=== PATIENT | male | born 1955 | race Caucasian/White ===

== ENCOUNTER 2017-10-15 05:30 | Inpatient (IN) | payer OTHER ==
[~2017-10-15] VITALS: Ht 175.3 cm; Wt 68.0 kg
--- NOTE | ~2017-10-15 | O ---
[facility] [place] [address] OPERATIVE REPORT Name: SHAUN CURRIE Room #: 411-P [facility] IN M.R.#: [id number] Admission: 10/15/17 Attend Phys: Kp Barnhart MD Discharge: Date of : 53 Report #: [id number] THIS REPORT FOR: //name// CC: [facility] physician/PCP Kp Barnhart DATE OF SERVICE: 10/15/2017 PREOPERATIVE DIAGNOSES: 1. Right ankle osteomyelitis. 2. Right ankle retained hardware. POSTOPERATIVE DIAGNOSES: 1. Right ankle osteomyelitis. 2. Right ankle retained hardware. 3. Right subtalar joint septic arthritis. PROCEDURE: Right ankle and subtalar joint irrigation and debridement with hardware removal. SURGEON: Kp Barnhart MD WIRELESS ARCHITECT: TAQUERIA Kelsey ANESTHESIA: General. ESTIMATED BLOOD LOSS: Minimal. DRAINS: None. TOURNIQUET TIME: 45 minutes. DESCRIPTION OF PROCEDURE: The patient brought to the operating room where he was placed under general anesthesia. Once under adequate general anesthesia, his right lower extremity was prepped and draped in the sterile manner. The extremity was elevated and tourniquet placed to 300 mmHg. Utilizing fluoroscopy for guidance, the 2 screw heads for the 7.3 cannulated screws were identified both medially and laterally. These were then subsequently removed through 2 cm incisions both medially and lateral at the distal third of the tibia and fibula. The patient did have a wire remaining which was in the subtalar joint. A 4 cm incision overlying the subtalar joint was then made to dissect down through the soft tissue to the joint itself, which was then opened. There was some purulent fluid identified there which was cultured. Curettes, rongeurs and an osteotome was utilized to localize what appeared to be a 0.062 K-wire, which was then extracted through the subtalar joint. An anteromedial incision was made over the talar neck and head, which was dissected down through the soft tissue to the [address] [address] OPERATIVE REPORT Name: SHAUN CURRIE JR Room #: 411-P [facility] IN ..#: [id number] Admission: 10/15/17 Attend Phys: Kp Barnhart MD Discharge: Date of : 53 Report #: [id number] talar neck and head, which was identified and subsequently any soft bone was then resected. This was sent to pathology as well as cultured. This was an apparent 2 cm in diameter area of the distal navicular. The wounds were then irrigated copiously and closed over a Hemovac drain through the lateral incision. The wounds were irrigated once again copiously and closed with 2-0 Prolene in the subcutaneous tissues and marta were used for the skin. The wounds were dressed with Xeroform, 4 x 4s, and sterile soft compressive dressing was placed. Tourniquet was let down approximately 45 minutes. Toes were pink and warm with good capillary refill. There were no complications from the procedure. The patient tolerated the procedure well and went to the recovery room without incident. <ELECTRONICALLY SIGNED> By: Kp Barnhart MD 10/18/17 [id number] Kp Barnhart MD /nt
--- NOTE | ~2017-10-15 | HC ---
[facility] [place] [address] CONSULTATION Name: ROSEYSHAUN Roshan LARA Room #: 411-P ADM IN M.R.#: [id number] Admission: 10/15/17 Attend Phys: Kp Barnhart MD Discharge: Date of : 53 Report #: [id number] THIS REPORT FOR: //name// CC: [facility] physician/PCP Kp Barnhart TYPE OF REPORT: Infectious disease consultation. REASON FOR CONSULTATION: I was asked to evaluate concerning right subtalar joint septic arthritis and osteomyelitis. HISTORY OF PRESENT ILLNESS: The patient was a 61-year old with a remote history of a right ankle fracture approximately 30 years ago. He underwent ORIF and actually healed well and was doing fine until end of July when he was walking upstairs and he tripped and injured the ankle. He had acute swelling. He had acute pain that did not resolve within 48 hours. He then was seen by his orthopedic surgeon and was put in an immobilizer boot. Still did not improve and was seen by Dr. Barnhart where an MRI scan was performed, showed evidence of osteomyelitis and septic arthritis involving the joint. He goes to surgery today for explantation of the hardware and debridement of the joint and talus. There was evidence of soft bone and purulent material in the joint. Following his fall approximately 1 week later developed colitis and was hospitalized at [facility]. He was unclear as to the etiology of this colitis. He was treated with 1 week course of antibiotic therapy. He has been off antibiotics for over one month. He has had no further GI symptoms since that hospital stay. He denies any other injuries. He has had no skin or soft tissue infections identified. When he fell, he did not break the skin to the ankle. ALLERGIES: Intolerance to CODEINE. MEDICATIONS: Amlodipine. He was given cefazolin today postop. PAST MEDICAL HISTORY: Ankle fracture and hypertension. FAMILY HISTORY: Noncontributory. SOCIAL HISTORY: Smokes marijuana. No significant alcohol intake. No HIV risk factors. 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 REVIEW OF SYSTEMS: Denies any cardiopulmonary, GI or complaints. No other skin or joint issues noted. PHYSICAL EXAMINATION: VITAL SIGNS: Afebrile and hemodynamically stable. GENERAL: He was alert and cooperative, in no acute distress. [address] [address] CONSULTATION Name: CURRIESHAUN L Room #: 411-[facility] IN [facility].#: [id number] Admission: 10/15/17 Attend Phys: Kp Barnhart MD Discharge: Date of : 53 Report #: [id number] EXTREMITIES: His right ankle was in surgical wrap. There was a drain in place. Toes were warm. Sensation intact. Good capillary refill. HEENT: Upper teeth are edentulous. Several lower anterior teeth present. NECK: Supple. No adenopathy. LUNGS: Clear. HEART: Regular, without murmur. ABDOMEN: Soft and nontender. NEUROLOGICAL: Nonfocal. LABORATORY STUDIES: Cultures are pending from the ankle. IMPRESSION AND RECOMMENDATIONS: A 61-year old with septic right ankle with underlying osteomyelitis and hardware infection. I am suspecting that the fall triggered this infection. Whether his colitis has some bearing this, has not yet clear. We would recommend obtaining CBC, chemistry, sedimentation rate. We will get a peripherally inserted central catheter line placed. Keep him on cefazolin for now until further cultures are back. Obtain microbiology reports and lab reports from [facility]. He will require outpatient antibiotic therapy. We will begin arrangements. <ELECTRONICALLY SIGNED> By: Bhupinder Wolff MD 10/18/17 1059 1959 [id number] Bhupinder Wolff MD /nt
[~2017-10-15 05:30] MED LIST: HYDROCODON-ACE1 EA10 PO; IBUPROFEN 200200 M1 PO; NORVASC10 MG PO
[2017-10-15 12:16] VITALS: BP 142/92
[2017-10-15 16:04] VITALS: BP 139/81
[2017-10-15 20:16] VITALS: BP 123/81
[2017-10-15 23:49] VITALS: BP 125/82
[2017-10-16 03:56] LABS: HEMATOCRIT 35.3 % (42.0-52.0); MANUAL DIFF YES; MCH 30.1 pg (26.0-34.0); MCHC 33.9 g/dL (28.0-37.0); MCV 88.7 fL (80.0-100.0); PLATELET COUNT 588 thou/uL (150-400); RBC 3.97 mil/uL (4.50-6.00); RDW 14.9 % (10.5-14.5); WBC 10.9 thou/uL (4.0-11.0)
[2017-10-16 04:03] LABS: POTASSIUM 3.9 mmol/L (3.5-5.1)
[2017-10-16 04:10] LABS: ALBUMIN 2.8 g/dL (3.4-5.0); CALCIUM 8.7 mg/dL (8.5-10.1); CREATININE 1.1 mg/dL (0.7-1.3); POTASSIUM 3.9 mmol/L (3.5-5.1); TOTAL BILIRUBIN 0.3 mg/dL (<0.1-1.0); TOTAL PROTEIN 7.8 g/dL (6.4-8.2)
[2017-10-16 04:53] LABS: ABSOLUTE NEUTROPHILS 9.8 thou/uL (1.4-8.2); ANISOCYTOSIS SLIGHT; TOTAL CELL COUNT 100
[2017-10-16 05:45] VITALS: BP 119/78
[2017-10-16 08:00] VITALS: BP 123/71
[2017-10-16 16:22] VITALS: BP 133/80
[2017-10-16 20:00] VITALS: BP 115/70
[2017-10-17 03:47] LABS: HEMATOCRIT 35.3 % (42.0-52.0); HEMOGLOBIN 11.5 gm/dL (14.0-18.0); MCH 29.1 pg (26.0-34.0); MCHC 32.7 g/dL (28.0-37.0); RBC 3.97 mil/uL (4.50-6.00); RDW 15.5 % (10.5-14.5)
[2017-10-17 04:00] VITALS: BP 128/72
[2017-10-17 04:06] LABS: ALBUMIN 2.7 g/dL (3.4-5.0); CALCIUM 8.3 mg/dL (8.5-10.1); CREATININE 0.9 mg/dL (0.7-1.3); POTASSIUM 3.4 mmol/L (3.5-5.1); TOTAL BILIRUBIN 0.2 mg/dL (<0.1-1.0); TOTAL PROTEIN 7.6 g/dL (6.4-8.2)
[2017-10-17 09:53] VITALS: BP 122/61
[2017-10-17 15:06] LABS: GLYCOHEMOGLOBIN (HGB A1C) 5.4 % (4.8-5.6)
[2017-10-17 16:46] VITALS: BP 129/73
[2017-10-17 20:00] VITALS: BP 124/82
[2017-10-18 04:00] VITALS: BP 144/83
[2017-10-18 08:00] VITALS: BP 137/90
[2017-10-18] MEDS ORDERED: PERCOCET 7.5-31 EACH PO (12:29)
[2017-10-18 14:03] VITALS: BP 137/90
== END 2017-10-18 17:06 | disposition home or self-care (01) | DRG 492 ==
LOC: OR 05:30 → TBA 05:30 → OR 09:24 → 4N 15:46 → ENTRNSPT 10-18 15:44 → EDTRNSPTSTS 10-18 15:46 → 4N 10-18 17:06
PROVIDERS: Hospitalist; Orthopaedic Surgery Foot and Ankle Surgery; Specialist
DX: M86.8X7 Other osteomyelitis, ankle and foot (principal); E43 Unspecified severe protein-calorie malnutrition; M00.9 Pyogenic arthritis, unspecified; I10 Essential (primary) hypertension; K21.9 Gastro-esophageal reflux disease without esophagitis; E88.09 Other disorders of plasma-protein metabolism, not elsewhere classified; D47.3 Essential (hemorrhagic) thrombocythemia; E87.6 Hypokalemia; Z88.6 Allergy status to analgesic agent
CPT/HCPCS: 10790; 27000; 50010; 50101; 50386; 51412; 57091; 62110; 62900; 70005

== ENCOUNTER → 2017-11-09 | Outpatient (CLI) | payer OTHER ==
[~2017-11-09] MED LIST changes: +PERCOCET 7.5-31 EACH PO
[2017-11-09 16:06] LABS: BASOPHILS 0.6 % (0.0-2.0); EOSINOPHILS 3.6 % (0.0-3.0); HEMATOCRIT 35.3 % (42.0-52.0); HEMOGLOBIN 12.6 gm/dL (14.0-18.0); LYMPHOCYTES 27.3 % (24.0-44.0); MCH 31.7 pg (26.0-34.0); MCHC 35.8 g/dL (28.0-37.0); MCV 88.6 fL (80.0-100.0); MONOCYTES 8.5 % (1.0-8.0); PLATELET COUNT 368 thou/uL (150-400); RBC 3.98 mil/uL (4.50-6.00); WBC 6.8 thou/uL (4.0-11.0)
[2017-11-09 16:07] LABS: MANUAL DIFF NO
[2017-11-09 16:26] LABS: ALBUMIN 3.3 g/dL (3.4-5.0); CALCIUM 8.8 mg/dL (8.5-10.1); POTASSIUM 4.3 mmol/L (3.5-5.1); TOTAL BILIRUBIN 0.2 mg/dL (<0.1-1.0); TOTAL PROTEIN 7.3 g/dL (6.4-8.2)
== END ==
LOC: OPONC 13:27
PROVIDERS: Specialist
DX: M86.8X7 Other osteomyelitis, ankle and foot (principal); I11.0 Hypertensive heart disease with heart failure; I50.9 Heart failure, unspecified; I25.2 Old myocardial infarction; E11.9 Type 2 diabetes mellitus without complications
CPT/HCPCS: 27000